=== PATIENT | female | born 1960 | race Two or more races ===

== ENCOUNTER → 2016-11-05 | Outpatient (CLI) | payer BC ==
[~2016-11-05] MED LIST: B P MED; FISH OIL 1,0001 EAC1 PO; LEVOTHROID175 MCG PO; LOESTRIN FE1 EA PO; LORTAB 7.5-5001 TAB PO; PHENERGAN25 MG PO; URSODIOL500 MG PO
--- NOTE | ~2016-11-05 | US5 ---
[facility] A Service of [facility] & [facility] RADIOLOGY TEXT RESULTS PATIENT: DIMITRIOS FERREIRA LOCATION: [facility] : 60 UNIT #: [id number] AGE: [address]: Jacob Campbell MD SEX: F ORDER DR: [id number] [facility] [address]. [place], [place] [address] [id number] O MR#: [id number] Acc #: [id number] NAME: DIMITRIOS FERREIRA : 1960 SEX: F STUDY DATE/TIME: 11/05/2016 7:51 UNIT: [facility] ROOM: STUDY DESCRIPTION: US Abdominal Complete Attending Physician: Jacob Campbell III, M.D. Referring Physician: Jacob Campbell III, M.D. Ordering Physician: Jacob Campbell III, M.D. Primary Care Physician: Jacob Campbell III, M.D. MEDICAL IMAGING REPORT This report is preliminary unless electronic signature is present EXAM Abdominal ultrasound complete 11/05/2016 HISTORY Hepatitis C. HIV. Primary biliary cirrhosis. Observation for hepatocellular carcinoma and cirrhosis. Diagnosed 5 years ago. FINDINGS The liver demonstrates a somewhat coarsened echotexture but no cystic or solid mass lesions are seen in the liver. The intrahepatic bile ducts are not dilated. The common duct is dilated to 1.1 cm, not significantly changed compared with previous exam 11/11/2015. No obstructing mass or calculus is seen. The gallbladder is surgically absent as per patient history. The pancreas is normal. The spleen measures 9 cm in greatest diameter. The visualized portions of the abdominal aorta and inferior vena cava are within normal limits. The kidneys are normal bilaterally. IMPRESSION 1. Somewhat coarsened liver echotexture but no cystic or solid mass lesions were seen within the liver. 2. Surgical absence of the gallbladder. Post-cholecystectomy dilatation of the common bile duct is not significantly changed compared with 11/11/2015. Dictated by... Esdras Cadena M.D. THIS IS AN ELECTRONICALLY VERIFIED REPORT Esdras Cadena M.D. at 11/08/2016 7:29 AM KRT/pcl [facility] A Service of [facility] & [facility] RADIOLOGY TEXT RESULTS PATIENT: DIMITRIOS FERREIRA LOCATION: [facility] #: [id number] : 60 UNIT #: [id number] AGE: [address]: Jacob Campbell MD SEX: F ORDER DR: TD: 11/05/2016 19:56 JOB #: [id number] MEDICAL IMAGING REPORT Page 1 of 1 COPY
== END | disposition home or self-care (01) ==
LOC: CWCC 07:35
DX: B19.20 Unspecified viral hepatitis C without hepatic coma (principal); K74.3 Primary biliary cirrhosis; K76.9 Liver disease, unspecified; Z90.49 Acquired absence of other specified parts of digestive tract
CPT/HCPCS: 76700